=== PATIENT | male | born 1980 | race Caucasian/White ===

== ENCOUNTER 2019-02-14 11:49 | Emergency (ER) | payer OTHER ==
[~2019-02-14] VITALS: Ht 170.2 cm; Wt 96.0 kg
[2019-02-14 13:10] LABS: BASOPHILS % 0.4 % (0.0-2.0); EOSINOPHILS % 0.3 % (0.0-5.0); HEMATOCRIT. 49.3 % (42.0-52.0); HEMOGLOBIN. 16.4 g/dL (14.0-18.0); LYMPHOCYTES % 9.6 % (20.0-50.0); MEAN CORPUSCULAR HEMOGLOBIN 29.7 pg (28.0-32.0); MEAN CORPUSCULAR VOLUME 89.6 fL (80.0-94.0); MEAN PLATELET VOLUME 8.9 fl (7.4-10.4); MONOCYTES % 5.8 % (2.0-8.0); NEUTROPHILS % 83.9 % (40.0-76.0); PLATELET 360 x1000/uL (130-400); RED CELL DISTRIBUTION WIDTH 13.4 % (11.6-14.6)
[2019-02-14 13:17] LABS: CHLORIDE 108 mEq/L (98-107)
[2019-02-14] MEDS ORDERED: SODIUM CHLORIDE 0.9% 1,000 ML IV ONE (13:17)
[2019-02-14 15:06] VITALS: BP 143/78
== END 2019-02-14 15:09 | disposition home or self-care (01) ==
LOC: ER 12:20
DX: L03.811 Cellulitis of head [any part, except face] (principal); R55 Syncope and collapse
CPT/HCPCS: 36415; 71045; 80053; 84484; 85025; 93005; 96360; 99284; J7030